=== PATIENT | female | born 1985 | race American Indian/Alaskan Native ===

== ENCOUNTER → 2021-11-04 13:23 | Outpatient (CLI) | payer OTHER, SELFPAY ==
[2021-11-04 14:13] LABS: Basophils Absolute Auto 100 /uL (0-100); Basophils Percent Auto 0.9 % (0-2); Eosinophils Absolute Auto 100 /uL (0-450); Eosinophils Percent Auto 1.6 % (2-4); Hematocrit 38.4 % (36-46); Hemoglobin 13.1 g/dL (12.0-16.0); Lymphocytes Absolute Auto 1800 /uL (1100-4500); Lymphocytes Percent Auto 22.1 % (25-40); Mean Corpuscular HGB Conc 34.2 % (30-36); Mean Corpuscular Hemoglobin 26.2 PG (26-34); Mean Corpuscular Volume 76.5 fL (80-100); Monocytes Absolute Auto 600 /uL (0-900); Monocytes Percent Auto 7.7 % (3-14); Neutrophils Absolute Auto 5400 /uL (1500-7000); Neutrophils Percent Auto 67.7 % (50-75); Platelet Count 258 X10^3/uL (150-400); Red Blood Cell Count 5.02 X10^6/uL (4.0-5.2); Red Cell Distribution Width 13.7 % (11.6-14.8)
[2021-11-04 14:14] LABS: Add Manual Diff / Slide Review SLIDE REVIEW
[2021-11-04 14:48] LABS: Alanine Aminotransferase 15 IU/L (<35); Albumin 4.6 g/dL (3.5-5.0); Albumin Globulin Ratio 1.4 (1.0-2.8); Alkaline Phosphatase 42 U/L (38-126); Aspartate Aminotransferase 23 IU/L (14-36); Bilirubin Total 0.4 mg/dL (0.2-1.3); Blood Urea Nitrogen 12 mg/dL (7-17); Calcium 9.4 mg/dL (8.4-10.2); Carbon Dioxide 27 mmol/L (22-32); Chloride 107 mmol/L (98-107); Estimated Glomerular Filt Rate > 60 mL/min (>60); Globulin 3.4 g/dL (1.7-4.1); Glucose 86 mg/dL (70-100); HEMOLYSIS < 15 (0-50); Potassium 4.7 mmol/L (3.4-5.1); Sodium 143 mmol/L (137-145)
[2021-11-04 15:18] LABS: TSH w/ Reflex to FT4 3.05 uIU/mL (0.47-4.68)
[2021-11-04 15:47] LABS: Microcytosis 1+
== END ==
PROVIDERS: PCP Physician Assistant; Referring Provider Physician Assistant; Visit Provider Physician Assistant
DX: R53.82 Chronic fatigue, unspecified (principal)
CPT/HCPCS: 36415; 80053; 84443; 85025